=== PATIENT | female | born 1995 | race Two or more races ===

== ENCOUNTER 2017-03-14 00:16 | Emergency (ER) | payer MEDICAID, OTHER ==
[~2017-03-14] VITALS: Ht 162.6 cm; Wt 59.9 kg
[2017-03-14 00:49] LABS: Urine Bilirubin Negative (Negative); Urine Blood 3+ /uL (Negative); Urine Color Yellow (Yellow); Urine Glucose Normal (Normal); Urine Ketone Negative (Negative); Urine Mucus FEW (None Seen); Urine Nitrite Negative (Negative); Urine RBC 116 /hpf (0 - 4); Urine Squamous Epithelial Cell FEW /hpf (<5); Urine Urobilinogen Normal (Negative); Urine pH 5.5 (5.0-8.0)
[2017-03-14 00:55] LABS: Basophils # (auto) 0.1 uL; Basophils % (auto) 0.7 % (0.0-2.0); Eosinophils # (auto) 0.2 uL; Eosinophils % (auto) 1.8 % (0.0-7.0); Hemoglobin 14.5 g/dL (12.2-16.2); Lymphocytes # (auto) 3.2 uL; Lymphocytes % (auto) 38.2 % (10.0-50.0); Mean Corpuscular Hemoglobin 29.8 pg (28.0-32.0); Mean Corpuscular Hgb Conc. 33.7 g/dL (32.0-36.0); Mean Corpuscular Volume 88.5 fL (80.0-100.0); Mean Platelet Volume 7.1 fL (7.4-10.4); Monocytes # (auto) 0.6 uL; Monocytes % (auto) 7.2 % (0.0-12.0); Neutrophils # (auto) 4.4 uL; Neutrophils % (auto) 52.1 % (37.0-80.0); Nucleated Red Blood Cells % 0.1 %; Platelet Count (auto) 300 10^3/uL (140-450); Red Cell Distribution Width 13.7 % (11.6-16.0); White Blood Cell 8.5 10^3/uL (4.4-10.8)
[2017-03-14 01:13] LABS: Albumin 4.1 g/dL (3.4-5.0); Calcium 8.9 mg/dL (8.5-10.1); Potassium 3.8 mmol/L (3.5-5.1)
[2017-03-14 01:19] LABS: Bilirubin, Total 0.4 mg/dL (0.2-1.0)
[2017-03-14 02:37] VITALS: BP 133/87
== END 2017-03-14 02:42 | disposition home or self-care (01) ==
LOC: ER 00:16
DX: N93.9 Abnormal uterine and vaginal bleeding, unspecified (principal)
CPT/HCPCS: 36415; 80053; 81001; 81025; 84702; 85025

== ENCOUNTER 2023-03-14 08:34 | Inpatient (IN) | payer MEDICAID ==
[~2023-03-14] VITALS: Ht 165.1 cm; Wt 91.2 kg
[2023-03-14] MEDS ORDERED: PROMETHAZINE HCL 25 MG/ML 1ML IV PRN (08:45)
[2023-03-14] MEDS ORDERED: DERMOPLAST 60ML BOTTLE TOP PRN (08:45)
[2023-03-14] MEDS: LACTATED RINGER'S 1,000 ML IV SCH ×2 (08:45→15:42)
[2023-03-14] MEDS ORDERED: PHISODERM TOP SOLN 240ML BTL TOP PRN (08:45)
[2023-03-14] MEDS ORDERED: BUTORPHANOL TARTRATE 2 MG/1 ML VIAL IV PRN ×2 (08:45)
[2023-03-14] MEDS ORDERED: WITCH HAZEL-GLYCERIN PAD TOP PRN (08:45)
[2023-03-14] MEDS ORDERED: LIDOCAINE 2%HCL (LOCAL ANESTH.) INJ 20ML MDV IJ PRN (08:45)
[2023-03-14] MEDS ORDERED: PENICILLIN G POT 5MIL/D5 50ML 50 ML IV ONE (08:45)
[2023-03-14 09:24] LABS: Basophils # (auto) 0.1 10 ^3/uL (0-0.2); Basophils % (auto) 0.5 % (0.0-2.0); Eosinophils # (auto) 0.1 10 ^3/uL (0-0.8); Eosinophils % (auto) 0.8 % (0.0-7.0); Hematocrit 38.5 % (36.0-46.0); Hemoglobin 12.9 g/dL (12.2-16.2); Lymphocytes # (auto) 2.6 10 ^3/uL (0.4-5.4); Lymphocytes % (auto) 17.9 % (10.0-50.0); Mean Corpuscular Hgb Conc. 33.5 g/dL (32.0-36.0); Mean Corpuscular Volume 86.4 fL (80.0-100.0); Monocytes # (auto) 1.1 10 ^3/uL (0-1.3); Monocytes % (auto) 7.8 % (0.0-12.0); Neutrophils # (auto) 10.7 10 ^3/uL (1.6-8.6); Red Blood Cells 4.46 10^6/uL (4.0-5.20); Red Cell Distribution Width 14.4 % (11.8-14.3); White Blood Cell 14.7 10^3/uL (4.4-10.8)
[2023-03-14 09:30] LABS: Urine Bacteria FEW /hpf (None Seen); Urine Blood 3+ /uL (Negative); Urine Clarity Clear (Clear); Urine Color Yellow (Yellow); Urine Mucus FEW (None Seen); Urine Protein, UAD TRACE (Negative); Urine Specific Gravity 1.017 (1.001-1.035); Urine Urobilinogen Normal (Negative); Urine WBC 15 /hpf (0 - 5)
[2023-03-14 09:42] LABS: Amphetamine Screen, Urine Neg (NEGATIVE)
[2023-03-14 09:43] LABS: Barbiturate Scree,Urine Neg (NEGATIVE); Benzodiazephine Screen, Urine Neg (NEGATIVE); Cannabinoid Screen, Urine Neg (NEGATIVE); Cocaine Screen, Urine Neg (NEGATIVE); Opiate Scree,Urine Neg (NEGATIVE); Phencyclidine Screen, Urine Neg (NEGATIVE)
[2023-03-14 09:45] LABS: Alanine Aminotransferase 13 U/L (7-40); Albumin 3.8 g/dL (3.2-4.8); Alkaline Phosphatase 261 U/L (46-116); Anion Gap 8.9 (5-15); Aspartate Aminotransferase 16 U/L (13-40); BUN/Creatinine Ratio 15.7 (10.0-20.0); Bilirubin, Total 0.6 mg/dL (0.2-1.0); Blood Urea Nitrogen 8 mg/dL (9-23); Calcium 9.3 mg/dL (8.5-10.1); Carbon Dioxide 19.1 mmol/L (20-30); Chloride 108 mmol/L (98-107); Glucose 86 mg/dL (74-106); Sodium 136 mmol/L (136-145); Total Protein 6.7 g/dL (5.7-8.2)
[2023-03-14 09:46] LABS: INR 0.9 (0.9-1.15); Partial Thromboplastin Time 28.5 SEC (24.5-34.5); Prothrombin Time 9.5 sec (9.3-11.8)
[2023-03-14] MEDS ORDERED: LACT. RINGERS/OXYTOCIN 20UNITS 500 ML IV ONE ×2 (11:30→12:00)
[2023-03-14] MEDS ORDERED: fentaNYL CITRATE 100 MCG/2 ML VL IV ONE ×3 (11:45→23:45)
[2023-03-14] MEDS ORDERED: NALOXONE HCL 0.4 MG/ML VIAL IV ONE (11:45)
[2023-03-14] MEDS ORDERED: ROPIVACAINE HCL 200 ML EPI SCH (11:45)
[2023-03-14] MEDS ORDERED: LACTATED RINGER'S 1,000 ML IV ONE (11:45)
[2023-03-14] MEDS ORDERED: ePHEDrine SULFATE 50 MG/ML AMP IV ONE (11:45)
[2023-03-14] MEDS ORDERED: LIDOCAINE HCL 2 %PF INJ 10ML AMP IJ ONE (11:45)
[2023-03-14] MEDS ORDERED: PENICILLIN G POTASSIUM 2,500,000 UNITS in D5W 5% 50 ML IV SCH (12:45)
[2023-03-14] MEDS ORDERED: diphenhdrAMINE HCL 50 MG/1 ML VL ONE (15:15)
[2023-03-14] MEDS ORDERED: methylPREDNISolone SOD SUCC 40 MG/ML VL IV ONE (15:30)
[2023-03-14] MEDS ORDERED: diphenhdrAMINE HCL 50 MG/1 ML VL IV ONE (15:30)
[2023-03-14] MEDS ORDERED: FAMOTIDINE (10MG/ML) 2ML VL IV ONE ×2 (15:30→15:36)
[2023-03-14] MEDS ORDERED: methylPREDNISolone ACETATE 80 MG/ML VL ONE (15:39)
[2023-03-14] MEDS ORDERED: methylPREDNISolone SOD SUCC 40 MG/ML VL ONE (15:59)
[2023-03-14] MEDS ORDERED: methylPREDNISolone SOD SUCC 125 MG/2 ML VL IV ONE (17:30)
[2023-03-14] MEDS: LIDOCAINE 5% TOPICAL PATCH TOP SCH ×2 (17:31→20:19)
[2023-03-14] MEDS ORDERED: ACETAMINOPHEN IV 1000 MG/100ML (10MG/ML) IV ONE (17:45)
[2023-03-14] MEDS ORDERED: LIDOCAINE 5% TOPICAL PATCH TOP ONE (19:45)
[2023-03-14] MEDS ORDERED: METHYLERGONOVINE MALEATE 0.2 MG/ML AMP IM ONE ×2 (23:28→23:45)
[2023-03-14] MEDS ORDERED: miSOPROStol 100 mcg TAB ONE (23:29)
[2023-03-14] MEDS ORDERED: OXYTOCIN 10UNIT/ML 1ML VIAL ONE (23:35)
[2023-03-14] MEDS ORDERED: OXYTOCIN 10UNIT/ML 1ML VIAL IM ONE (23:45)
[2023-03-14] MEDS ORDERED: KETOROLAC TROMETH 30 MG/ML 1ML VIAL IV ONE (23:45)
[2023-03-14] MEDS ORDERED: ceFAZolin 2 GM/D5W100ml 100 ML IV ONE (23:45)
[2023-03-14] MEDS ORDERED: miSOPROStol 100 mcg TAB SL PRN (23:45)
[2023-03-15] VITALS (7 sets, daily range): BP systolic 123–135; BP diastolic 68–88; PULSE 81–100; RESP 15–18; TEMP 98–98.2; O2SAT 95–98
[2023-03-15] MEDS ORDERED: ACETAMINOPHEN IV 1000 MG/100ML (10MG/ML) IV ONE (04:45)
[2023-03-15 06:29] LABS: RPR Non Reactive (Non Reactive)
[2023-03-15 06:50] LABS: Basophils # (auto) 0 10 ^3/uL (0-0.2); Eosinophils # (auto) 0 10 ^3/uL (0-0.8); Hematocrit 34.2 % (36.0-46.0); Hemoglobin 11.2 g/dL (12.2-16.2); Lymphocytes # (auto) 2.4 10 ^3/uL (0.4-5.4); Lymphocytes % (auto) 11.4 % (10.0-50.0); Mean Corpuscular Hemoglobin 28.9 pg (28.0-32.0); Mean Corpuscular Hgb Conc. 32.9 g/dL (32.0-36.0); Monocytes # (auto) 1.9 10 ^3/uL (0-1.3); Monocytes % (auto) 8.9 % (0.0-12.0); Neutrophils # (auto) 16.9 10 ^3/uL (1.6-8.6); Neutrophils % (auto) 79.7 % (37.0-80.0); Red Blood Cells 3.89 10^6/uL (4.0-5.20); Red Cell Distribution Width 14.5 % (11.8-14.3); White Blood Cell 21.2 10^3/uL (4.4-10.8)
[2023-03-15 07:06] LABS: Rubella Antibodies, IgG 1.15 index (Immune >0.99)
[2023-03-15] MEDS ORDERED: ZOLPIDEM TARTRATE 5 MG TAB PO ONE (08:45)
[2023-03-15] MEDS ORDERED: MORPHINE SULFATE 4 MG/ML SYR/VIAL IV ONE (08:45)
[2023-03-15] MEDS ORDERED: DexAMETHasone SOD PHOS 10MG/1ML VIAL INJ IM ONE (11:00)
[2023-03-15] MEDS ORDERED: CYCLOBENZAPRINE HCL 10 MG TAB PO ONE (11:00)
[2023-03-15] MEDS ORDERED: PREN-96 PO (16:24)
[2023-03-15] MEDS: IBUPROFEN 600 MG TAB PO PRN (19:18)
[2023-03-15] MEDS: DOCUSATE SOD 100 MG CAP PO SCH (22:29)
[2023-03-15] MEDS: CYCLOBENZAPRINE HCL 10 MG TAB PO PRN (23:02)
[2023-03-16] MEDS: ACETAMINOPHEN 325 MG TAB PO PRN ×3 (00:59→21:48)
[2023-03-16 03:00] VITALS: BP 107/50; PULSE 88; RESP 16; TEMP 97.9; O2SAT 96
[2023-03-16] MEDS: IBUPROFEN 600 MG TAB PO PRN ×2 (06:00→15:06)
[2023-03-16 06:54] VITALS: BP 104/59; PULSE 79; RESP 16; TEMP 98.8; O2SAT 99
[2023-03-16] MEDS: CYCLOBENZAPRINE HCL 10 MG TAB PO PRN ×2 (08:57→18:11)
[2023-03-16] MEDS ORDERED: DOCU-265 PO (10:08)
[2023-03-16] MEDS ORDERED: PREN-96 PO (10:08)
[2023-03-16] MEDS ORDERED: IBU600T PO (10:08)
[2023-03-16] MEDS ORDERED: ACET-1882 PO (10:08)
[2023-03-16] MEDS ORDERED: CYCL-611 PO (10:08)
[2023-03-16] MEDS ORDERED: CEPH250C PO (10:09)
[2023-03-16 10:48] VITALS: BP 113/72; PULSE 96; RESP 16; TEMP 98; O2SAT 98
[2023-03-16 15:14] VITALS: BP 121/76; PULSE 92; RESP 16; TEMP 98; O2SAT 98
[2023-03-16] MEDS: LIDOCAINE 5% TOPICAL PATCH TOP SCH (18:01)
[2023-03-16 18:50] VITALS: BP 103/60; PULSE 98; RESP 18; TEMP 98.4; O2SAT 98
[2023-03-16 20:06] LABS: Treponema pallidum Ab (FTA-Ab) Non Reactive (Non Reactive)
[2023-03-16] MEDS: DOCUSATE SOD 100 MG CAP PO SCH (22:00)
[2023-03-16 23:00] VITALS: BP 110/78; PULSE 96; RESP 18; TEMP 98.2; O2SAT 98
[2023-03-17 03:00] VITALS: BP 118/77; PULSE 84; RESP 18; TEMP 97.8; O2SAT 96
[2023-03-17] MEDS: IBUPROFEN 600 MG TAB PO PRN ×2 (03:20→11:46)
[2023-03-17] MEDS: CYCLOBENZAPRINE HCL 10 MG TAB PO PRN ×2 (04:51→15:46)
[2023-03-17] MEDS ORDERED: TETANUS-DIPTH-ACEL PERTUSSIS 0.5ML SYR Tdap IM ONE (06:30)
[2023-03-17 07:00] VITALS: BP 126/83; PULSE 84; RESP 18; TEMP 98.1; O2SAT 96
[2023-03-17] MEDS: ACETAMINOPHEN 325 MG TAB PO PRN (07:50)
[2023-03-17 11:30] VITALS: BP 122/86; PULSE 86; RESP 18; TEMP 98.7; O2SAT 97
[2023-03-17 15:06] VITALS: BP 130/85; PULSE 82; RESP 16; TEMP 98; O2SAT 96
== END 2023-03-17 18:15 | disposition home or self-care (01) | DRG 560 ==
LOC: LDRP 08:34 → OBSVTOIN 08:45 → LDRP 03-15 03:56
PROVIDERS: ADMIT Obstetrics & Gynecology; ATTEND Obstetrics & Gynecology
PROC: 10E0XZZ Delivery of Products of Conception, External Approach (ICD-10-PCS; principal; 2023-03-14)
PROC: 0KQM0ZZ Repair Perineum Muscle, Open Approach (ICD-10-PCS; 2023-03-14)
PROC: 3E0R3BZ Introduction of Anesthetic Agent into Spinal Canal, Percutaneous Approach (ICD-10-PCS; 2023-03-14)
PROC: 00HU33Z Insertion of Infusion Device into Spinal Canal, Percutaneous Approach (ICD-10-PCS; 2023-03-14)
DX: O99.892 Other specified diseases and conditions complicating childbirth (principal); Z37.0 Single live birth; R71.0 Precipitous drop in hematocrit; M54.12 Radiculopathy, cervical region; O70.1 Second degree perineal laceration during delivery; Z3A.38 38 weeks gestation of pregnancy; O99.334 Smoking (tobacco) complicating childbirth; F17.200 Nicotine dependence, unspecified, uncomplicated
CPT/HCPCS: 36415; 59025; 59409; 62282; 70450; 72125; 76805; 80053; 80307; 81001; 81002; 85025; 85610; 85730; 86592; 86703; 86762; 86850; 86900; 86901; 87340; 90715; 94760; 94762; 96360; 96361; 96365; 96372; 96374; 96375; 97163; G0378; J0131; J1885; J2540; J2590; J3490; J7060

== ENCOUNTER 2023-03-18 08:25 | Emergency (ER) | payer MEDICAID ==
[~2023-03-18] VITALS: Ht 165.1 cm; Wt 93.4 kg
[~2023-03-18 08:25] MED LIST: ACET-1882 PO; CEPH250C PO; CYCL-611 PO; DOCU-265 PO; IBU600T PO; PREN-96 PO
[2023-03-18 09:35] VITALS: BP 132/88; PULSE 89; RESP 18; TEMP 98; O2SAT 97
[2023-03-18 10:27] LABS: Rapid Influenza A Negative (Negative); Rapid Influenza B Negative (Negative)
[2023-03-18 10:28] LABS: COVID19 ANTIGEN SOFIA FIA NEGATIVE (NEGATIVE)
== END 2023-03-18 10:38 | disposition left against medical advice (07) ==
LOC: ER 08:25
DX: R19.7 Diarrhea, unspecified (principal); J02.9 Acute pharyngitis, unspecified; R51.9 Headache, unspecified; Z53.21 Procedure and treatment not carried out due to patient leaving prior to being seen by health care provider; Z20.822 Contact with and (suspected) exposure to COVID-19
CPT/HCPCS: 36415; 87426; 87804